=== PATIENT | male | born 1955 | race African-American/Black ===

== ENCOUNTER 2021-03-09 10:02 | Emergency (ER) | payer MEDICAID ==
[~2021-03-09] VITALS: Ht 185.4 cm; Wt 68.0 kg
[2021-03-09] MEDS ORDERED: VISCOUS LIDOCAINE 2% 15 ML UDC PO STA (11:02)
[2021-03-09] MEDS ORDERED: MAGNESIUM/ALUMINUM HYDROXIDE/SIMETHICONE 30ML UDC PO STA (11:02)
[2021-03-09] MEDS ORDERED: LACTULOSE 20G/30ML UDC PO ONE (11:15)
[2021-03-09] MEDS ORDERED: FAMOTIDINE 20MG TABLET PO ONE (11:15)
[2021-03-09 11:19] LABS: BASOPHILS % 0.4 % (0.0-2.0); EOSINOPHILS % 1.3 % (0.0-5.0); HEMATOCRIT. 42.5 % (42.0-52.0); HEMOGLOBIN. 14.5 g/dL (14.0-18.0); LYMPHOCYTES % 14.6 % (20.0-50.0); MEAN PLATELET VOLUME 8.7 fl (7.4-10.4); MONOCYTES % 6.7 % (2.0-8.0); PLATELET 288 x1000/uL (130-400); RED BLOOD CELL COUNT 4.82 mill/uL (4.7-6.1); RED CELL DISTRIBUTION WIDTH 14.4 % (11.6-14.6)
[2021-03-09 11:22] LABS: CHLORIDE 101 mEq/L (98-107)
[2021-03-09 11:30] LABS: PROTHROMBIN TIME 10.7 sec (9.6-11.0)
[2021-03-09 12:20] LABS: CLARITY URINE CLEAR (CLEAR); COLOR URINE YELLOW (YELLOW); KETONES URINE NEGATIVE (NEGATIVE); LEUKOCYTE ESTERASE URINE NEGATIVE (NEGATIVE); NITRITE URINE NEGATIVE (NEGATIVE); OCCULT BLOOD URINE NEGATIVE (NEGATIVE); PROTEIN URINE NEGATIVE (NEGATIVE); SPECIFIC GRAVITY URINE 1.011 (1.005-1.030); UROBILINOGEN URINE 0.2 E.U./dL (0.2-1.0)
[2021-03-09] MEDS ORDERED: PROT20 MT (13:41)
[2021-03-09 14:12] VITALS: BP 115/79
== END 2021-03-09 14:13 | disposition home or self-care (01) ==
LOC: ER 10:14
DX: R10.13 Epigastric pain (principal); R11.2 Nausea with vomiting, unspecified; D57.1 Sickle-cell disease without crisis; Z98.890 Other specified postprocedural states; Z79.899 Other long term (current) drug therapy
CPT/HCPCS: 36415; 74176; 80053; 81003; 85025; 99285